=== PATIENT | male | born 1975 | race Caucasian/White ===

== ENCOUNTER 2018-07-05 08:26 | Day surgery (SDC) | payer BC ==
[~2018-07-05 08:26] MED LIST: ACETAMINOPHEN 1,000 MG/100 ML BTL IV ONE
[2018-07-05] MEDS ORDERED: BUPIVACAINE 0.25% W/EPI MPF 30ML VIAL IVP ONE (08:27)
[2018-07-05] MEDS ORDERED: LIDOCAINE 2% MDV (20MG/ML) 20ML VIAL IV ONE (08:27)
[2018-07-05] MEDS ORDERED: PROPOFOL 10 MG/ML VIAL IV ONE (08:27)
[2018-07-05] MEDS ORDERED: HYDROCODONE/APAP 5/325MG TABLET PO ONE (08:27)
[2018-07-05] MEDS ORDERED: ONDANSETRON HCL IV 4 MG/2 ML VIAL IVP ONE (08:27)
[2018-07-05] MEDS ORDERED: FENTANYL PF 100MCG/2ML VIAL IV ONE (08:27)
[2018-07-05] MEDS ORDERED: KETOROLAC 30 MG/ML VIAL IVP ONE (08:27)
[2018-07-05] MEDS ORDERED: SEVOFLURANE 250 ML INH ONE (08:27)
[2018-07-05] MEDS ORDERED: MIDAZOLAM HCL 2MG/2ML VIAL IV ONE (08:27)
--- NOTE | 2018-07-06 08:00 | Operative Note ---
DATE OF SURGERY: 07/05/2018 Surgeon: oJse Griffiths DO PREOPERATIVE DIAGNOSIS: Torn medial meniscus of the left knee. POSTOPERATIVE DIAGNOSES: 1. Torn medial meniscus of the left knee. 2. Chondromalacia of the trochlea, left knee. 3. Suprapatellar plica, left knee. OPERATION: 1. Arthroscopic partial medial meniscectomy, left knee. 2. Arthroscopic excision of suprapatellar plica, left knee. DESCRIPTION OF PROCEDURE: This 43-year-old male was taken to the operating room and placed in the supine position on the operating room table where general anesthesia was induced. The left lower extremity was elevated. It was exsanguinated and the tourniquet inflated to 300 mmHg. Arthroscopic knee denise applied. Left knee prepped with Hibiclens and draped in the usual sterile fashion. An inferolateral portal was established for the 4 mm arthroscope, and initial evaluation of the joint demonstrated normal appearance of the suprapatellar pouch except for a suprapatellar plica. This was resected with the rotating shaver from a medial portal. Probing the articular cartilage of the patella revealed normal articular cartilage there; however, there was an early grade 2 change noted in the trochlea with cracks and fissures but they were not loose or unstable and not further disturbed. The medial compartment was entered, and a complex tear of the posterior horn of the medial meniscus was present. Utilizing the basket forceps and rotating shaver, we resected back to the apex of the tear which was approximately at the 12-o'clock position. It was then trimmed and balance using these instruments to stable rim. We then re-probed the medial meniscus and found it to be stable. The articular cartilage of the medial compartment appeared normal. The intracondylar notch was examined and found to be normal. The lateral compartment was entered, and the lateral meniscus and articular cartilage appeared normal. The joint was copiously irrigated and suctioned and all areas were reexamined with no additional findings being present. The joint was suctioned. The instruments were removed. The portals infiltrated with 0.25% Marcaine with epinephrine. Sterile dressings were applied and the patient taken to the recovery room in satisfactory condition. GROSS PATHOLOGY: Grade 2 chondromalacia of the trochlea was present. A fibrotic suprapatellar plica also noted with a tear of the medial meniscus as described above. CC: DO THOMPSON Bar
== END 2018-07-05 11:45 | disposition home or self-care (01) ==
LOC: SUR 08:26
PROVIDERS: ATTEND Orthopaedic Surgery
DX: S83.232A Complex tear of medial meniscus, current injury, left knee, initial encounter (principal); M67.52 Plica syndrome, left knee; M94.262 Chondromalacia, left knee; E78.00 Pure hypercholesterolemia, unspecified
CPT/HCPCS: 29881; 29875; 01400; J1885; J2405; J3010